=== PATIENT | female | born 1975 | race Two or more races ===

== ENCOUNTER 2020-03-01 12:07 | Emergency (ER) | payer OTHER ==
[~2020-03-01] VITALS: Ht 149.9 cm; Wt 74.8 kg
[2020-03-01] MEDS ORDERED: TENORMIN50 M1 (12:36)
[2020-03-01] MEDS ORDERED: ZYRTEC10 M3 (12:36)
== END 2020-03-01 16:47 | disposition home or self-care (01) ==
LOC: ER 12:07
DX: N93.8 Other specified abnormal uterine and vaginal bleeding (principal); Z20.822 Contact with and (suspected) exposure to COVID-19